=== PATIENT | male | born 1955 | race Caucasian/White ===

== ENCOUNTER 2024-08-14 07:43 | Day surgery (SDC) | payer MEDICARE, BC ==
[2024-08-14] MEDS: Lactated Ringers 1,000 ML IV SCH (08:09)
[2024-08-14] MEDS ORDERED: fentaNYL 100 MCG/2 ML SDV ONE (08:19)
[2024-08-14] MEDS ORDERED: Propofol 200 MG/20 ML SDV ONE ×2 (08:19→09:42)
== END 2024-08-14 11:11 | disposition home or self-care (01) ==
LOC: VM.SDS 07:43
PROVIDERS: ATTEND Student in an Organized Health Care Education/Training Program
DX: Z12.11 Encounter for screening for malignant neoplasm of colon (principal); D12.5 Benign neoplasm of sigmoid colon; Z88.2 Allergy status to sulfonamides
CPT/HCPCS: 00811; 45380; 45385; J2704; J3010; J7120